=== PATIENT | female | born 1960 | race Caucasian/White ===

== ENCOUNTER 2018-02-23 03:43 | Emergency (ER) ==
[2018-02-23 03:55] VITALS: BP 117/76; TEMP 98.1; BMI 32.9
[2018-02-23] MEDS ORDERED: TORADOL IM STA (04:21)
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
== END 2018-02-23 05:46 | disposition home or self-care (01) ==
LOC: ED 03:43
DX: S00.83XA Contusion of other part of head, initial encounter (principal); R06.02 Shortness of breath; R07.81 Pleurodynia; M25.552 Pain in left hip; M79.632 Pain in left forearm; F41.9 Anxiety disorder, unspecified; S50.12XA Contusion of left forearm, initial encounter; V86.99XA Unspecified occupant of other special all-terrain or other off-road motor vehicle injured in nontraffic accident, initial encounter
CPT/HCPCS: 96372; 99283

== ENCOUNTER 2018-11-12 16:17 | Emergency (ER) ==
[2018-11-12 16:21] VITALS: BP 135/83; TEMP 98.9; BMI 33.3
[2018-11-12] MEDS ORDERED: DILAUDID 1 MG/ML SYRINGE IM STA (16:26)
--- NOTE | 2018-11-12 16:29 | ED.PDOC ---
General ED Provider: Dr. RAMESH RODRIGUEZ Chief Complaint: Back Pain Stated Complaint: low back pain after lifting a heavy object Time Seen by Physician: 16:18 (NEGATIVE TRAUMA . EN PRESENT) Mode of Arrival: Walk-In Information Source: Patient Exam Limitations: No limitations Nursing and Triage Documentation Reviewed and Agree: Yes Does patient meet sepsis criteria?: No System Inflammatory Response Syndrome: Not Applicable Sepsis Protocol: For patient's 13 years and over: Temp is 96.8 and below OR 101 and greater Pulse >90 BPM Resp >20/minute Acutely Altered Mental Status Are patient's symptoms suggestive of a new infection, such as: -Pneumonia -Skin, Soft Tissue -Endocarditis -UTI -Bone, Joint Infection -Implantable Device -Acute Abdominal Infection -Wound Infection -Meningitis -Blood Stream Catheter Infection -Unknown Musculoskeletal Complaint Exam - Back Pain Complaint/Exam Mechanism of Injury: Reports: No known trauma Onset/Duration: 1 DAY AGO Symptoms Are: Still present Timing: Constant Episodes Lasting: Hours Initial Severity: Moderate Current Severity: Moderate Location: Reports: Discrete Character: Reports: Aching, Throbbing, Spasmodic Aggravating: Reports: Movements, Lifting, Bending, Walking Alleviating: Reports: Rest Associated Signs and Symptoms: Denies: Swelling, Redness, Bruising, Fever, Weakness, Numbness, Tingling, Abdominal pain, Flank pain, Bladder incontinence, Bowel incontinence, Weight loss, Pain with weight bearing Related History: Reports: Similar episode TAD Risk Factors: Reports: None AAA Risk Factors: Reports: Hypertension Cauda Equina Risk Factors: Denies: Saddle anesthesia, Perineal anesthesia, Bladder dysfuntion, Bowel dysfunction, Lower extremity numbness, Lower extremity weakness Related Surgical History: Reports: None Focal Tenderness: No Paraspinal Muscle Tenderness: No Paraspinal Muscle Spasm: No Scoliosis: No Lordosis: No Kyphosis: No Hip Motion Testing Pain: Right Negative, Left Negative Focal Sensory Loss: Present: None Gait: Present: Normal Differential Diagnoses: Strain, Sprain Review of Systems - Review Of Systems Constitutional: Reports: No symptoms Eyes: Reports: No symptoms Ears, Nose, Mouth, Throat: Reports: No symptoms Respiratory: Reports: No symptoms Cardiac: Reports: No symptoms GI: Reports: No symptoms : Reports: No symptoms Musculoskeletal: Reports: Back pain Skin: Reports: No symptoms Neurological: Reports: No symptoms Endocrine: Reports: No symptoms Hematologic/Lymphatic: Reports: No symptoms All Other Systems: Reviewed and Negative Past Medical History - Past Medical History Previously Healthy: Yes Endocrine: Reports: None Cardiovascular: Reports: Hypertension Respiratory: Reports: None Hematological: Reports: None Gastrointestinal: Reports: GERD Genitourinary: Reports: None Neuro/Psych: Reports: None Musculoskeletal: Reports: None Cancer: Reports: None Last Menstrual Period: NONE - Surgical History General Surgical History: Reports: Hysterectomy, Cholecystectomy, Orthopedic ( right foot bunion ), Other (colon resection ) - Family History Family History: Reports: Unknown - Social History Smoking Status: Current every day smoker, Light tobacco smoker Hx Substance Use: No Alcohol Screening: None Physical Exam - Physical Exam Appearance: Well-appearing, No pain distress, Well-nourished Eyes: DOUG, EOMI, Conjunctiva clear ENT: Ears normal, Nose normal, Oropharynx normal Respiratory: Airway patent, Breath sounds clear, Breath sounds equal, Respirations nonlabored Cardiovascular: RRR, Pulses normal, No rub, No murmur GI/: Soft, Nontender, No masses, Bowel sounds normal, No Organomegaly Musculoskeletal: Normal strength, ROM intact, No edema, No calf tenderness Skin: Warm, Dry, Normal color Neurological: Sensation intact, Motor intact, Reflexes intact, Cranial nerves intact, Alert, Oriented Psychiatric: Affect appropriate, Mood appropriate Critical Care Note - Critical Care Note Total Time (mins): 0 Course - Course Orders, Labs, Meds: Orders Category Date Time Status Hydromorphone HCl [Dilaudid 1 mg/ml Syringe] MEDS 11/12/18 16:26 Stat 1 mg IM ONCE STA Vital Signs: Temp Pulse Resp BP Pulse Ox 11/12/18 16:17 98.9 F 82 20 135/83 97 Departure - Departure Time of Disposition: 16:29 Disposition: HOME SELF-CARE Discharge Problem: Low back pain Qualifiers: Chronicity: acute Back pain laterality: unspecified Sciatica presence: without sciatica Qualified Code(s): M54.5 - Low back pain Instructions: Acute Low Back Pain (ED) Condition: Good Pt referred to PMD for follow-up: Yes IPMP verified?: No Additional Instructions: Please call your Family Physician as soon as possible to schedule a follow-up appointment. Allergies/Adverse Reactions: Allergies ampicillin Adverse Reaction (Verified 11/12/18 16:21) Rash latex Adverse Reaction (Verified 11/12/18 16:21) Rash Penicillins Adverse Reaction (Verified 11/12/18 16:21) Rash Home Medications: Ambulatory Orders Albuterol Sulfate 0.083% Neb [Albuterol 0.083% Neb] 1 vial INH PRN PRN 04/17/13 Losartan/Hydrochlorothiazide [Losartan-Hctz 100-25 mg Tab] 1 each PO DAILY 11/12 Pantoprazole Sodium [Protonix] 40 mg PO QDAC 11/12/18 Disposition Discussed With: Patient
[2018-11-12] MEDS ORDERED: MORPHINE 4 MG/ML SYRINGE IM STA (16:38)
== END 2018-11-12 16:56 | disposition home or self-care (01) ==
LOC: ED 16:17
DX: M54.5 Low back pain (principal); X50.0XXA Overexertion from strenuous movement or load, initial encounter; F17.210 Nicotine dependence, cigarettes, uncomplicated
CPT/HCPCS: 96372; 99282